=== PATIENT | male | born 1980 ===

== ENCOUNTER 2024-02-03 05:10 | Day surgery (SDC) | payer OTHER ==
[~2024-02-03] VITALS: Ht 180.3 cm; Wt 109.8 kg
[2024-02-03] MEDS ORDERED: POVIDONE-IODINE 118 ML BOTT TOP ONE (08:00)
[2024-02-03] MEDS ORDERED: DIBUCAINE 30 GM TUBE RECTAL ONE (08:15)
[2024-02-03] MEDS ORDERED: LIDOCAINE HCL 1%/EPINEPHRINE 20ML VIAL IJ ONE (08:15)
[2024-02-03] MEDS ORDERED: BUPIVACAINE HCL 30 ML VIAL IJ ONE (08:15)
[2024-02-03] MEDS ORDERED: METRONIDAZOLE/SODIUM CHLORIDE 500 MG/100 ML PIGGYBACK IV SCH (08:15)
[2024-02-03] MEDS ORDERED: CEFTRIAXONE SODIUM 2,000 MG VIAL IV SCH (08:15)
[2024-02-03] MEDS ORDERED: HEMOSTATIC MATRIX 1 KIT KIT TOP ONE (08:15)
[2024-02-03] MEDS ORDERED: PERCOCET 5-3251 EACH PO (08:33)
[2024-02-03] MEDS ORDERED: RECTICARE30 GM TOP (08:33)
== END 2024-02-03 13:55 | disposition home or self-care (01) ==
LOC: CIR.AMB 05:10
PROVIDERS: ATTEND Surgery
DX: K60.3 Anal fistula (principal)